=== PATIENT | male | born 1985 | race Caucasian/White ===

== ENCOUNTER 2020-05-16 21:10 | Emergency (ER) | payer BC, SELFPAY ==
[2020-05-16 22:13] LABS: #Basophils 0.1 thou/uL (0.0-0.2); #Eosinphils 0.1 thou/uL (0.0-0.7); #Lymphocytes 2.4 thou/uL (1.20-3.40); #Monocytes 0.5 thou/uL (0.11-0.59); #Neutrophils 2.9 thou/uL (1.40-6.50); %Eosinophils 1.2 % (0.0-10.0); %Lymphocytes 39.7 % (21.0-51.0); %Monocytes 9.1 % (0.0-10.0); %Neutrophils 48.9 % (42.0-75.0); Hemoglobin 15.5 g/dL (14.0-18.0); Mean Corpuscular HGB CONC 34.8 g/dL (32.0-36.0); Mean Corpuscular Hemoglobin 33.2 pg (27.0-31.0); Mean Corpuscular Volume 95.2 fL (78.0-98.0); Mean Platelet Volume 7.9 fL (7.4-10.4); Platelet Count 175 thou/uL (130-400); RBC Distribution Width 12.4 % (11.5-14.5); Red Blood Cell (RBC) Count 4.67 mill/uL (4.70-6.10); White Blood Cell (WBC) Count 5.9 thou/uL (4.8-10.8)
[2020-05-16 22:29] LABS: ALT (SGPT) 110 U/L (8-55); AST (SGOT) 69 U/L (5-34); Acetaminophen Less than 6.0 mcg/mL (10.0-30.0); Albumin 3.6 g/dL (3.5-5.0); Alcohol 223 mg/dL (Less than 10); Alkaline Phosphatase 85 U/L (40-110); Anion Gap 17 mmol/L (10-20); BUN (Urea Nitrogen) 10 mg/dL (8.9-20.6); Bilirubin, Total 0.4 mg/dL (0.2-1.2); CK (CPK) 115 U/L (30-200); Calc. Creatinine Clearance 0 mL/min (70-130); Calcium 8.5 mg/dL (7.8-10.44); Carbon Dioxide 28 mmol/L (22-29); Chloride 93 mmol/L (98-107); Estimated GFR-MDRD Greater than 90; Glucose 89 mg/dL (70-105); Potassium 3.3 mmol/L (3.5-5.1); Protein, Total 7.6 g/dL (6.0-8.3); Salicylate Less than 8.0 mg/dL (15.0-30.0); Sodium 135 mmol/L (136-145)
[2020-05-16] MEDS ORDERED: Lorazepam 2 MG/ML VIAL ONE (22:33)
--- NOTE | 2020-05-16 22:35 | CT ---
Head CT without contrast: 05/16/2020 COMPARISON: None HISTORY: Fall, trauma, pain TECHNIQUE: Axial CT imaging at 5 mm intervals from vertex through skull base without contrast FINDINGS: There is prominent scalp swelling in the posterior right parietal region. The imaged parana stephania sinuses and mastoid air cells are well-aerated. No displaced calvarial fracture. No intracranial hemorrhage, midline shift, or mass effect. There is mild encephalomalacia involving the lateral right temporal and frontal lobe suggesting prior insult/infarction. IMPRESSION: Prominent soft tissue swelling on the right with no intracranial hemorrhage or displaced calvarial fracture.
[2020-05-16 23:50] LABS: Bilirubin Negative (Negative); Blood, Urine Negative (Negative); Clarity Clear (Clear); Glucose, Urine (Dipstick) Normal (Negative); Ketone, Urine Negative (Negative); Leukocyte Negative Leu/uL (Negative); Nitrite Negative (Negative); Protein, Urine (Dipstick) Negative (Neg-Trace); Specific Gravity, Urine 1.004 (1.002-1.036); Urobilinogen Normal mg/dL (Less than 2)
[2020-05-17 00:06] LABS: Amphetamine Not Detected (NotDetected); Barbiturates Screen Not Detected (NotDetected); Benzodiazepine Screen Not Detected (NotDetected); Cocaine Metabolite Screen Not Detected (NotDetected); Medtox Control Line Valid? VALID (VALID); Medtox Reader # READER 4; Methadone Not Detected (NotDetected); Methamphetamine Not Detected (NotDetected); Opiate Screen Not Detected (NotDetected); Oxycodone Screen Not Detected (NotDetected); Phencyclidine (PCP) Not Detected (NotDetected); THC/Cannabinoid Screen Not Detected (NotDetected); Tricyclic Screen Not Detected (NotDetected)
[2020-05-17] MEDS ORDERED: Boostrix 0.5 ML (Tdap) VIAL ONE (00:24)
[2020-05-17] MEDS ORDERED: Lorazepam 1 MG TAB ONE (04:18)
--- NOTE | 2020-05-17 07:05 | CT ---
CT CERVICAL SPINE NONCONTRAST: Date: 05/16/2020 Time: 10:19 PM HISTORY: 35-year-old male status post acute cervical trauma from fall. FINDINGS: The C7-T1 disc space, including the anterior inferior corner of C7 vertebral body, was excluded from the images. There are no jumped or perched facets. There is no evidence of acute fracture. The vert ebral body heights are maintained. There is no prevertebral soft tissue swelling. At C4-5, there is what appears to be a right lateral focal disc herniation protruding to the right neural foramen, pot entially impinging on the right exiting C5 nerve root. IMPRESSION: 1. No evidence of acute fracture or acute traumatic subluxation. 2. Incomplete visualization of cervicothoracic junction. jnr POS: JIN
== END 2020-05-17 08:57 | disposition home or self-care (01) ==
LOC: ERS 21:10
DX: F10.129 Alcohol abuse with intoxication, unspecified (principal); I10 Essential (primary) hypertension; F41.9 Anxiety disorder, unspecified; F31.9 Bipolar disorder, unspecified; F43.10 Post-traumatic stress disorder, unspecified; Z79.01 Long term (current) use of anticoagulants; Z79.899 Other long term (current) drug therapy
CPT/HCPCS: 36415; 70450; 72125; 80053; 80306; 80307; 81003; 82550; 84443; 85025; 90471; 90715; 93005; 96374; J2060